=== PATIENT | female | born 1985 | race Caucasian/White ===

== ENCOUNTER 2024-08-03 23:35 | Inpatient (IN) | payer MEDICAID ==
[~2024-08-03] VITALS: Ht 162.6 cm; Wt 91.4 kg
[2024-08-04] VITALS (33 sets, daily range): BP systolic 92–179; BP diastolic 52–96; PULSE 59–96; RESP 14–31; TEMP 36.6–37.1; O2SAT 93–99
[2024-08-04 00:02] LABS: BASOPHILS % 0.1 % (0.0-2.0); EOSINOPHILS % 0.1 % (0.0-5.0); HEMATOCRIT. 37.3 % (36.0-48.0); HEMOGLOBIN. 12.3 g/dL (12.0-16.0); LYMPHOCYTES % 19.8 % (20.0-50.0); MEAN CORPUSCULAR HEMOGLOBIN 27.1 pg (28.0-32.0); MEAN CORPUSCULAR VOLUME 82.1 fL (81.0-99.0); MEAN PLATELET VOLUME 7.9 fl (7.4-10.4); MONOCYTES % 3.9 % (2.0-8.0); NEUTROPHILS % 76.1 % (40.0-76.0); PLATELET 349 x1000/uL (130-400); RED BLOOD CELL COUNT 4.54 mill/uL (4.2-5.4); RED CELL DISTRIBUTION WIDTH 15.2 % (11.6-14.6); WHITE BLOOD COUNT 17.8 x1000/uL (4.5-11.0)
[2024-08-04 00:12] LABS: INR 1.1; PARTIAL THROMBOPLASTIN TIME 23.5 sec (23.4-31.0); PROTHROMBIN TIME 11.4 sec (9.6-11.0)
[2024-08-04 00:14] LABS: CHLORIDE 106 mEq/L (98-107); POTASSIUM 3.9 mEq/L (3.5-5.1); SODIUM 142 mEq/L (136-145)
[2024-08-04 00:15] LABS: CALCIUM 10.3 mg/dL (8.7-10.4); CARBON DIOXIDE 19 mEq/L (21-32)
[2024-08-04] MEDS: SODIUM CHLORIDE 0.9% 1,000 ML IV ONE ×2 (00:19)
[2024-08-04 00:20] LABS: CREATININE 1.8 mg/dL (0.6-1.0); GLUCOSE 114 mg/dL (70-105); UREA NITROGEN BLOOD 18 mg/dL (9-23)
[2024-08-04 00:22] LABS: ALANINE AMINOTRANSFERASE 29 IU/L (10-49); ASPARTATE AMINOTRANSFERASE 55 IU/L (<34); BILIRUBIN DIRECT < 0.1 mg/dL (<=3.0); BILIRUBIN TOTAL 0.2 mg/dL (0.1-1.0); CREATINE KINASE 930 IU/L (34-145); PROTEIN TOTAL 7.7 g/dL (6.0-8.3)
[2024-08-04 00:33] LABS: TROPONIN I HIGH SENSITIVITY 2192 ng/L (3.0-34)
[2024-08-04 00:43] LABS: HCG SCREEN NEGATIVE
[2024-08-04 01:06] LABS: BG BASE EXCESS -7.8 mmol/L (-2.0-3.0); BG CARBOXYHEMOGLOBIN 0.1 % (0.5-1.5); BG DEOXYHEMOGLOBIN 4.5 % (0.0-5.0); BG FRACTION INSPIRED OXYGEN 28; BG HCO3 ACT 17.1 mmol/L (21.0-28.0); BG METHEMOGLOBIN 0.3 % (0.5-1.5); BG OXYGEN SATURATION 95.5 % (94.0-98.0); BG OXYHEMOGLOBIN 95.1 % (94.0-98.0); BG PCO2 33.3 mmHg (32.0-45.0); BG PH 7.328 (7.350-7.450); BG PO2 91.1 mmHg (83.0-108.0); BG SAMPLE SITE RIGHT RADIAL; BG TOTAL HEMOGLOBIN 13.6 g/dL (12.0-16.0); BG VENT MODE NASAL CANNULA
[2024-08-04] MEDS ORDERED: ONDANSETRON HCL 4MG/2ML INJ IV PRN (03:30)
[2024-08-04] MEDS ORDERED: IPRATROPIUM/ALBUTEROL 0.5-3(2.5)MG/3ML NEB HHN PRN (03:30)
[2024-08-04] MEDS ORDERED: MAGNESIUM/ALUMINUM HYDROXIDE/SIMETHICONE 30ML UDC PO PRN (03:30)
[2024-08-04] MEDS ORDERED: ACETAMINOPHEN 325MG TABLET PO PRN ×2 (03:30)
[2024-08-04] MEDS ORDERED: CLONIDINE 0.1MG TABLET PO PRN (03:30)
[2024-08-04] MEDS ORDERED: DOCUSATE SODIUM 100MG CAPSULE PO PRN (03:30)
[2024-08-04] MEDS ORDERED: GUAIFENESIN 200MG/10ML SUGAR FREE UDC PO PRN (03:30)
[2024-08-04] MEDS: LACTATED RINGERS 1,000 ML IV SCH (04:04)
[2024-08-04] MEDS: ENOXAPARIN 100MG/ML SYR SUBCUT SCH (08:12)
[2024-08-04] MEDS: ASPIRIN 81MG TABLET PO SCH (08:12)
[2024-08-04 09:57] LABS: CLARITY URINE CLEAR (CLEAR); COLOR URINE YELLOW (YELLOW); GLUCOSE URINE NEGATIVE (NEGATIVE); KETONES URINE TRACE (NEGATIVE); LEUKOCYTE ESTERASE URINE TRACE (NEGATIVE); NITRITE URINE NEGATIVE (NEGATIVE); OCCULT BLOOD URINE 1+ (NEGATIVE); PH URINE 5.5 (4.5-8.0); PROTEIN URINE NEGATIVE (NEGATIVE); SPECIFIC GRAVITY URINE 1.011 (1.005-1.030); UROBILINOGEN URINE 0.2 E.U./dL (0.2-1.0)
[2024-08-04 10:21] LABS: *AMPHETAMINES SCREEN URINE NEGATIVE (NEGATIVE); *BARBITURATES SCREEN URINE NEGATIVE (NEGATIVE); *BENZODIAZEPINES SCREEN URINE PRESUMPTIVE POSITIVE (NEGATIVE); *COCAINE SCREEN URINE NEGATIVE (NEGATIVE); METHADONE URINE SCREEN NEGATIVE (NEGATIVE); OPIATES URINE SCREEN NEGATIVE (NEGATIVE); PHENCYCLIDINE URINE SCREEN NEGATIVE (NEGATIVE)
[2024-08-04 10:22] LABS: CANNABINOID URINE SCREEN NEGATIVE (NEGATIVE); ECSTASY MDMA SCREEN URINE NEGATIVE (NEGATIVE)
[2024-08-04 10:27] LABS: BACTERIA URINE TRACE; SQUAMOUS EPITHELIAL CELL URINE FEW /lpf (RARE/1+)
[2024-08-04 10:28] LABS: RBC URINE 0-2 /hpf (0-2)
[2024-08-04 10:29] LABS: WBC URINE 0-2 /hpf (0-2)
[2024-08-04 16:24] LABS: HEMATOCRIT. 33.5 % (36.0-48.0); LYMPHOCYTES % 27.4 % (20.0-50.0); MEAN CORPUSCULAR HEMOGLOBIN 26.9 pg (28.0-32.0); MEAN CORPUSCULAR HGB CONC 32.9 g/dL (31.0-37.0); MEAN CORPUSCULAR VOLUME 81.7 fL (81.0-99.0); MONOCYTES % 5.4 % (2.0-8.0); NEUTROPHILS % 67.2 % (40.0-76.0); PLATELET 234 x1000/uL (130-400); RED CELL DISTRIBUTION WIDTH 16.1 % (11.6-14.6); WHITE BLOOD COUNT 12.8 x1000/uL (4.5-11.0)
[2024-08-04 16:28] LABS: CHLORIDE 106 mEq/L (98-107); POTASSIUM 3.2 mEq/L (3.5-5.1); SODIUM 142 mEq/L (136-145)
[2024-08-04 16:29] LABS: CALCIUM 9.3 mg/dL (8.7-10.4); CARBON DIOXIDE 26 mEq/L (21-32)
[2024-08-04 16:34] LABS: CREATININE 0.8 mg/dL (0.6-1.0); GLUCOSE 114 mg/dL (70-105)
[2024-08-04 16:35] LABS: CREATINE KINASE MB FRACTION 35.1 ng/mL (0.5-3.6); ETHANOL BLOOD < 10 mg/dL (<10); LDL CHOLESTEROL 70 mg/dL (5-100); TRIGLYCERIDE 288 mg/dL (0-150); UREA NITROGEN BLOOD 9 mg/dL (9-23)
[2024-08-04 16:36] LABS: ALANINE AMINOTRANSFERASE 37 IU/L (10-49); ALBUMIN 4.5 g/dL (3.2-4.8); ASPARTATE AMINOTRANSFERASE 82 IU/L (<34); BILIRUBIN DIRECT < 0.1 mg/dL (<=3.0); CHOLESTEROL 116 mg/dL (<200); HDL CHOLESTEROL 25 mg/dL (>65); PHOSPHORUS 3.1 mg/dL (2.5-4.9)
[2024-08-04 16:37] LABS: BILIRUBIN TOTAL 0.3 mg/dL (0.1-1.0); PROTEIN TOTAL 6.8 g/dL (6.0-8.3)
[2024-08-04 16:40] LABS: T4 FREE 1.05 ng/dL (0.89-1.76); THYROID STIMULATING HORMONE 0.97 uIU/mL (0.55-4.78)
[2024-08-04 16:44] LABS: LACTIC ACID 2.4 mmol/L (0.4-2.0)
[2024-08-04] MEDS: POTASSIUM CHLORIDE 20MEQ TABLET SR PO NR (17:54)
[2024-08-04] MEDS: FAMOTIDINE 20MG TABLET PO SCH (21:12)
[2024-08-05] VITALS: BP 110/61; PULSE 68; RESP 18; TEMP 36.7; O2SAT 99
[2024-08-05 04:00] VITALS: BP 120/69; PULSE 69; RESP 17; TEMP 36.4; O2SAT 99
[2024-08-05 06:05] LABS: D-DIMER 0.63 mg/L FEU (<0.50); INR 1.1; PROTHROMBIN TIME 11.4 sec (9.6-11.0)
[2024-08-05 06:21] LABS: BASOPHILS % 0.1 % (0.0-2.0); HEMATOCRIT. 36.9 % (36.0-48.0); HEMOGLOBIN. 12.2 g/dL (12.0-16.0); LYMPHOCYTES % 46.5 % (20.0-50.0); MEAN CORPUSCULAR HEMOGLOBIN 27.3 pg (28.0-32.0); MEAN CORPUSCULAR VOLUME 82.6 fL (81.0-99.0); MEAN PLATELET VOLUME 8.5 fl (7.4-10.4); MONOCYTES % 3.5 % (2.0-8.0); NEUTROPHILS % 49.9 % (40.0-76.0); PLATELET 255 x1000/uL (130-400); RED BLOOD CELL COUNT 4.47 mill/uL (4.2-5.4); RED CELL DISTRIBUTION WIDTH 15.8 % (11.6-14.6); WHITE BLOOD COUNT 10.9 x1000/uL (4.5-11.0)
[2024-08-05 06:24] LABS: CHLORIDE 104 mEq/L (98-107); POTASSIUM 3.8 mEq/L (3.5-5.1); SODIUM 140 mEq/L (136-145)
[2024-08-05 06:25] LABS: CALCIUM 9.5 mg/dL (8.7-10.4); CARBON DIOXIDE 24 mEq/L (21-32)
[2024-08-05 06:30] LABS: CREATININE 0.8 mg/dL (0.6-1.0); GLUCOSE 93 mg/dL (70-105); UREA NITROGEN BLOOD 6 mg/dL (9-23)
[2024-08-05 06:32] LABS: PHOSPHORUS 2.8 mg/dL (2.5-4.9)
[2024-08-05 06:43] LABS: CREATINE KINASE 3597 IU/L (34-145)
[2024-08-05 08:00] VITALS: BP 139/86; PULSE 65; RESP 19; TEMP 36.4; O2SAT 99
[2024-08-05 11:16] VITALS: BP 135/86; PULSE 75; TEMP 97.2; O2SAT 98
== END 2024-08-05 11:50 | disposition home or self-care (01) | DRG 815 ==
LOC: ER 23:35 → MICUSO 08-04 01:07 → EDBEDREQ 08-04 01:27 → ENRESERV 08-04 02:17 → 6WST 08-04 20:20
PROVIDERS: ADMIT Internal Medicine; ATTEND Internal Medicine
DX: T67.01XA Heatstroke and sunstroke, initial encounter (principal); J96.01 Acute respiratory failure with hypoxia; I21.A1 Myocardial infarction type 2; M62.82 Rhabdomyolysis; E86.0 Dehydration; E86.1 Hypovolemia; N17.9 Acute kidney failure, unspecified; D72.820 Lymphocytosis (symptomatic); R73.9 Hyperglycemia, unspecified; X58.XXXA Exposure to other specified factors, initial encounter; S80.211A Abrasion, right knee, initial encounter; X30.XXXA Exposure to excessive natural heat, initial encounter; Z79.82 Long term (current) use of aspirin; Z79.899 Other long term (current) drug therapy; Y93.89 Activity, other specified; Y92.89 Other specified places as the place of occurrence of the external cause; Y99.8 Other external cause status
CPT/HCPCS: 36415; 36600; 71045; 73560; 80048; 80061; 80076; 80305; 80320; 81003; 82375; 82550; 82553; 82805; 83036; 83520; 83605; 83735; 83880; 84100; 84145; 84439; 84443; 84484; 84703; 85025; 85379; 93005; 99285; A4606; J1650; J7030; J7120; G0480